=== PATIENT | female | born 1990 | race African-American/Black ===

== ENCOUNTER 2016-08-03 02:42 | Inpatient (IN) ==
[2016-08-03] MEDS ORDERED: BUTORPHANOL 2 MG/ML VIAL IV PRN (02:47)
[2016-08-03] MEDS ORDERED: BUTORPHANOL 1 MG/ML VIAL IV PRN (03:04)
[2016-08-03] MEDS: LACTATED RINGERS 1,000 ML IV SCH ×3 (03:10→20:22)
[2016-08-03] MEDS: AMPICILLIN INJ 2,000 MG in SODIUM CHLORIDE 0.9% 100 ML IV SCH ×3 (03:15→19:10)
[2016-08-03] MEDS: BETAMETH SODIUM PHOS/ACETATE 30 MG/5 ML VIAL IM SCH (03:15)
[2016-08-03] MEDS: ERYTHROMYCIN INJ 500 MG in SODIUM CHLORIDE 0.9% 100 ML IV SCH ×4 (03:37→20:52)
[2016-08-03 03:52] LABS: Basophils % 0.4 % (0.0-0.8); Eosinophils # 0.2 10*3/uL (0.0-0.87); Eosinophils % 2.1 % (0.00-10.9); Hematocrit 34.9 VOL% (35.7-47.0); Hemoglobin 11.2 GM/DL (12.0-16.0); Immature Granulocytes % 0.4 %; Immature Granulocytes Absolute 0.03 #; Lymphocytes # 2.4 10*3/uL (1.4-4.0); Lymphocytes % 30.6 % (21.3-54.2); Mean Corpuscular HGB Conc 32.1 GM/DL (32-36); Mean Corpuscular Hemoglobin 28 PG (27-34); Mean Platelet Volume 10.4 FL (9.6-12.0); Monocytes # 0.9 10*3/uL (0.11-0.8); Monocytes % 11.2 % (1.7-12.7); Neutrophils # 4.4 10*3/uL (1.4-7.4); Neutrophils % 55.3 % (38.7-73.9); Platelet Count 227 T/CUMM (130-400); Red Blood Count 4.01 MC/CUMM (3.8-5.5); Red Cell Distribution Width 13.7 % (9.3-17.3)
[2016-08-03 04:07] LABS: Alanine Aminotransferase 11 U/L (13-56); Albumin 2.7 G/DL (3.4-5.0); Alkaline Phosphatase 86 U/L (45-117); Aspartate Amino Transferase 10 U/L (0-37); Bilirubin,Total < 0.39 MG/DL (0.2-1.0); Blood Urea Nitrogen 7 MG/DL (7-18); Calcium 8.6 MG/DL (8.5-10.1); Glucose 92 MG/DL (74-106); Osmolality,Calculated 285.7 MOS/KG (273-304); Potassium 3.5 MMOL/L (3.5-5.1); Sodium 145 MMOL/L (136-145); Total Protein 5.5 G/DL (6.4-8.3)
[2016-08-03 04:11] LABS: Apearance,Urine CLEAR (Clear); Bilirubin,Urine Negative (Negative); Blood, Urine Negative (Negative); Glucose,Urine (UA) Negative (Negative); Ketones,Urine Negative (Negative); Mucus,Urine Occasional /LPF (Occasional); Nitrite,Urine Negative (Negative); Protein,Urine Negative; RBC,Urine <1 /HPF (0-4); Squamous Epithelial Cell,Urine Occasional /HPF (0-10); Urine Color Straw (Yellow); Urine Specific Gravity 1.012 (1.001-1.035); Urine Urobilinogen < 2.0 EU/DL (0.2-1.0); WBC,Urine 1 /HPF (0-6)
[2016-08-03 08:16] LABS: Hepatitis B Surface Ag Quant < 0.10 Index; Hepatitis B Surface Ag Result Negative (Negative); Rubella Antibody IgG 44.8 IU/ML
[2016-08-03 11:18] LABS: HIV Antigen/Antibody Result Nonreactive (Nonreactive)
--- NOTE | 2016-08-03 11:50 | OB/GYN History & Physical ---
History of Present Illness History of present illness: Ms. De Santiago is a 26 year old female Pt. 26y/o @ 26+1wk presented to labor and delivery from [facility] with leakage of fluid last night. Pt. noted to be grossly ruptured and complaining of abdominal pain. Pt. gave hx of being diagnosed with a urinary tract infection 2 days ago however had not started taking her antibiotics yet. Pt. denied vaginal bleeding. Home Medications Medication Instructions Recorded Confirmed Type Pnv No.122/Iron/Folic Acid 1 tablet PO DAILY 08/03/16 08/03/16 History [ Multi Tablet] Allergies Allergy/AdvReac Type Severity Reaction Status Date / Time No Known Allergies Allergy Verified 08/03/16 02:47 12 point system: reviewed and no additional remarkable complaints except as stated Medical,Surgical,& Family Hx - Medical History Musculoskeletal: No history of: Amputation Reproductive: No history of: Ectopic , Complication - Surgical History Reproductive Surgeries: Patient denies;: Section, Gynecologic Surgery - Family History Family History: Reports;: Family Heart Disease (dad), Family Hematology (pgm clotting problems), Family Hypertension (dad), Family Stroke (uncle) Denies;: Family Anesthesia Reaction, Family Cancer, Family Diabetes, Family Psychiatric Problems, Additional Family History - Social History Smoking Status: Never smoker Frequency of Alcohol Use: None Type of Drug Use: None Exam SENIOR SERVICE AIDE - Constitutional Vitals: Vital Signs Temp Pulse Resp BP Pulse Ox 08/03/16 07:12 98.0 F 83 18 134/75 97 08/03/16 06:08 98.8 F 08/03/16 04:00 98.1 F 71 20 143/76 08/03/16 02:49 98.3 F 73 20 160/87 100 General appearance: no acute distress - Antepartum / Post Antpartum Exam Cervix -Dilatation: sterile speculum exam: 1cm/long/-3 vaginal pooling of clear fluid Heart Rate: category 1 tracing, no contractions - Respiratory Respiratory exam: Present: clear to auscultation bilaterally - Cardiovascular Cardiovascular exam: Present: regular rate and rhythm - GI/Abdominal GI/Abdominal exam: Present: soft - Extremities Exam Extremities exam: Present: normal inspection Assessment and Plan (1) premature rupture of membranes (PPROM) with unknown onset of labor Status: Acute Assessment and plan: 1. admit, urine cx, gc/chlam 2. cont. ampicillen/erythromycin iv 3. cont. betamethasone x 2 doses 4. daily cbcs after completion of steriods 5. ob u/s anisa 2.2, vtx, awaiting official report 6. I counseled the patient regarding the findings on ultrasound and the plan of care. I explained the morbidity associated with premature rupture of membranes and the goal at this time. NICU consult- Dr. Lora has spoken with the patient. Pt. made aware that she will be a candidate for Ronda her next 7. Pt. is not dillan and does not appear to be in imminent delivery therefore will not start magnesium for neuroprotection however if her status changes will start. Current Visit: Yes (2) Urinary tract infection Status: Acute Current Visit: Yes Results - Labs CBC & BMP: 08/03/16 03:37 08/03/16 03:37
--- NOTE | 2016-08-03 11:59 | Ultrasound Report ---
History: Premature rupture of membranes Date: 08/03/2016 Study: Obstetrical ultrasound greater than 14 weeks Comparison exam: First trimester ultrasound April 15, 2016 The study was also reviewed by Bee. Preliminary verbal report was given to Dr. Harris by Bee on 08/03/2016 at 4:05 AM There is a single intrauterine fetus in vertex presentation with a heart rate of 145 bpm. There is oligohydramnios with ARTHUR measuring 2.4 cm. The placenta is posterior without previa. The maternal cervix measures grossly 4.4 cm by transabdominal measurement. The ventricular atrium measures 7 mm transverse. The posterior fossa structures are not well demonstrated. There is a 3 vessel umbilical cord. The spine, stomach bubble, kidneys, bladder, and cord insertion are unremarkable. The four-chamber heart view is not optimally demonstrated. There are no masses of the maternal myometrium. The maternal ovaries are not seen BPD 65 mm or 26 weeks 2 days Head circumference 240 mm or 26 weeks 0 days Abdominal circumference 205 mm or 25 weeks 1 day Femur length 48 mm or 26 weeks 1 days The fetus measures in the 20th percentile based on EFW Impression: Single intrauterine fetus in vertex presentation with a menstrual age of 25 weeks 6 days +/- 13 days, ISABELA October,, and EFW 833 g +/- 124 g. motion and cardiac activity are noted during real-time sonography. Oligohydramnios with ARTHUR of 2.4 cm PROCEDURE INTERPRETED AT [facility] DEPARTMENT OF RADIOLOGY Final Report Signed by: Dr. Merle Aguiar
[2016-08-03] MEDS: DOCUSATE SODIUM 100 MG CAPSULE PO SCH (20:52)
[2016-08-04] MEDS: AMPICILLIN INJ 2,000 MG in SODIUM CHLORIDE 0.9% 100 ML IV SCH ×3 (03:04→19:31)
[2016-08-04] MEDS: BETAMETH SODIUM PHOS/ACETATE 30 MG/5 ML VIAL IM SCH (03:07)
[2016-08-04] MEDS: ERYTHROMYCIN INJ 500 MG in SODIUM CHLORIDE 0.9% 100 ML IV SCH ×4 (04:25→21:13)
[2016-08-04] MEDS: LACTATED RINGERS 1,000 ML IV SCH ×2 (04:26→15:44)
[2016-08-04] MEDS: DOCUSATE SODIUM 100 MG CAPSULE PO SCH ×2 (09:40→21:13)
--- NOTE | 2016-08-04 14:28 | OB/GYN Progress Note ---
Assessment and Plan (1) premature rupture of membranes (PPROM) with unknown onset of labor Status: Acute Assessment and plan: 1. cont. antibiotics 2. cbc in am Current Visit: Yes (2) Urinary tract infection Status: Acute Current Visit: Yes MILK BOTTLER - PN: Subj Interval history: Pt. seen by bedside, denies any complaints. Pt. denies any fever or chills. no vaginal bleeding or abdominal pain. no contractions. + movement. Exam MILK BOTTLER - Constitutional Vitals: Vital Signs Temp Pulse Resp BP Pulse Ox 08/04/16 07:39 97.4 F L 85 18 128/76 97 08/04/16 06:05 97.7 F 08/04/16 04:00 99.2 F 08/04/16 01:59 97.3 F L 08/04/16 01:00 99.4 F 08/03/16 23:00 98.4 F 97 H 18 114/62 08/03/16 21:02 98.8 F 08/03/16 19:00 99.3 F 85 20 136/72 98 08/03/16 16:00 98.1 F 95 H 18 138/77 General appearance: no acute distress - Antepartum / Post Antpartum Exam Heart Rate: category 1 tracing, moderate variability, no contractions. - Respiratory Respiratory exam: Present: clear to auscultation bilaterally - Cardiovascular Cardiovascular exam: Present: regular rate and rhythm - GI/Abdominal GI/Abdominal exam: Present: soft (soft, nontender) - Extremities Exam Extremities exam: Present: normal inspection Results - Labs CBC & BMP: 08/03/16 03:37 08/03/16 03:37
[2016-08-04] MEDS: MAGNESIUM SULF DRIP 40 GM/1,000 ML ML IV SCH (15:18)
[2016-08-04] MEDS: ACETAMINOPHEN 325 MG TABLET PO PRN (22:25)
[2016-08-05] MEDS: AMPICILLIN INJ 2,000 MG in SODIUM CHLORIDE 0.9% 100 ML IV SCH ×3 (03:25→19:15)
[2016-08-05 04:05] LABS: Basophils % 0.1 % (0.0-0.8); Hematocrit 33.3 VOL% (35.7-47.0); Immature Granulocytes % 2.1 %; Immature Granulocytes Absolute 0.47 #; Lymphocytes # 2.1 10*3/uL (1.4-4.0); Lymphocytes % 9.3 % (21.3-54.2); Mean Corpuscular Hemoglobin 28 PG (27-34); Mean Corpuscular Volume 84.7 FL (87-102); Mean Platelet Volume 10.5 FL (9.6-12.0); Monocytes # 0.9 10*3/uL (0.11-0.8); Monocytes % 4.1 % (1.7-12.7); Neutrophils # 18.8 10*3/uL (1.4-7.4); Neutrophils % 84.4 % (38.7-73.9); Platelet Count 270 T/CUMM (130-400); Red Blood Count 3.93 MC/CUMM (3.8-5.5); White Blood Count 22.2 T/CUMM (4-12)
[2016-08-05] MEDS: ERYTHROMYCIN INJ 500 MG in SODIUM CHLORIDE 0.9% 100 ML IV SCH ×4 (04:10→21:25)
[2016-08-05 04:58] LABS: Anisocytosis Slight; Band Neutrophils 2 % (0-10); Lymphocytes 8 % (20-55); Microcytosis Slight; Platelet Estimate Normal; Segmented Neutrophils 85 % (50-85); Total Cells Counted 100
[2016-08-05] MEDS: LACTATED RINGERS 1,000 ML IV SCH ×2 (05:10→21:25)
[2016-08-05] MEDS: DOCUSATE SODIUM 100 MG CAPSULE PO SCH ×2 (08:53→21:05)
--- NOTE | 2016-08-05 09:20 | OB/GYN Progress Note ---
Assessment and Plan (1) premature rupture of membranes (PPROM) with unknown onset of labor Status: Acute Assessment and plan: Continue current management. Patient neonatology consultation. Current Visit: Yes VISCOSITY INSPECTOR - PN: Subj Interval history: Patient denies uterine contractions or vaginal bleeding. She still has some leaking of fluid and reports good movement. Exam VISCOSITY INSPECTOR - Constitutional Vitals: Vital Signs Temp Pulse Resp BP Pulse Ox 08/05/16 08:00 99.8 F H 85 18 127/71 08/05/16 06:00 99.2 F 08/05/16 04:00 97.6 F 81 18 131/79 08/05/16 02:00 98.1 F 08/05/16 00:00 98.3 F 88 18 129/73 08/04/16 22:26 98.1 F 08/04/16 22:25 98.1 F 08/04/16 21:15 98.8 F 08/04/16 19:52 96 H 20 103/62 08/04/16 19:00 98.8 F 08/04/16 16:00 97.4 F L 92 H 18 134/75 96 08/04/16 12:00 99.1 F General appearance: no acute distress - Antepartum / Post Antpartum Exam Cervix -Dilatation: Closed Effacement: long Station: -4 Rupture: PPROM Presentation: vertex Heart Rate: 140s/150s [place]: no contractions Results - Labs CBC & BMP: 08/05/16 03:55 08/03/16 03:37
[2016-08-05] MEDS: MAGNESIUM SULF DRIP 40 GM/1,000 ML ML IV SCH (11:19)
[2016-08-05] MEDS: ACETAMINOPHEN 325 MG TABLET PO PRN (12:33)
[2016-08-06] MEDS: AMPICILLIN INJ 2,000 MG in SODIUM CHLORIDE 0.9% 100 ML IV SCH ×3 (03:05→19:35)
[2016-08-06] MEDS: ERYTHROMYCIN INJ 500 MG in SODIUM CHLORIDE 0.9% 100 ML IV SCH ×4 (03:30→21:15)
[2016-08-06] MEDS: DOCUSATE SODIUM 100 MG CAPSULE PO SCH ×2 (08:54→21:15)
[2016-08-06] MEDS: LACTATED RINGERS 1,000 ML IV SCH (10:42)
[2016-08-06 16:45] LABS: Basophils % 0.1 % (0.0-0.8); Hemoglobin 11.1 GM/DL (12.0-16.0); Immature Granulocytes % 2.5 %; Lymphocytes # 2.6 10*3/uL (1.4-4.0); Lymphocytes % 16.4 % (21.3-54.2); Mean Corpuscular HGB Conc 32.6 GM/DL (32-36); Mean Corpuscular Hemoglobin 28 PG (27-34); Mean Corpuscular Volume 86.5 FL (87-102); Mean Platelet Volume 10.4 FL (9.6-12.0); Monocytes # 1.6 10*3/uL (0.11-0.8); NRBC # 0.03 10*3/uL; Neutrophils # 11.2 10*3/uL (1.4-7.4); Platelet Count 255 T/CUMM (130-400); Red Blood Count 3.93 MC/CUMM (3.8-5.5); Red Cell Distribution Width 14.3 % (9.3-17.3); White Blood Count 15.8 T/CUMM (4-12)
--- NOTE | 2016-08-06 17:19 | OB/GYN Progress Note ---
Assessment and Plan (1) premature rupture of membranes (PPROM) with unknown onset of labor Status: Acute Assessment and plan: Continue current management. Patient neonatology consultation. Repeat ultrasound for ARTHUR. Will consider discharge to home pending labs and ultrasound. Current Visit: Yes ARCHITECTURAL MANAGER - PN: Subj Interval history: pt without complaint. Reports good movement. Still leaking fluid. No contractions, no bleeding Exam ARCHITECTURAL MANAGER - Constitutional Vitals: Vital Signs Temp Pulse Resp BP Pulse Ox 08/06/16 08:00 98.9 F 55 L 18 129/72 99 08/06/16 04:00 98.9 F 71 18 127/68 08/06/16 03:00 98.8 F 08/06/16 01:00 98.1 F 08/06/16 00:00 97.6 F 73 18 121/69 08/05/16 23:00 97.6 F 08/05/16 21:00 97.7 F 08/05/16 20:00 98.8 F 94 H 20 118/68 General appearance: no acute distress - Head Head exam: Present: normocephalic - Respiratory Respiratory exam: Present: clear to auscultation bilaterally - Cardiovascular Cardiovascular exam: Present: regular rate and rhythm - GI/Abdominal GI/Abdominal exam: Present: normal bowel sounds, soft (non-tender) - Extremities Exam Extremities exam: Present: normal inspection Results - Labs CBC & BMP: 08/06/16 16:39 08/03/16 03:37
--- NOTE | 2016-08-06 17:46 | Ultrasound Report ---
History: Spontaneous rupture of membranes Date: 08/06/2016 Study: Obstetric ultrasound greater than 14 weeks follow-up Comparison exam: August 03, 2016 ultrasound is available Real-time ultrasound images are captured and archived. There is a single intrauterine fetus in vertex presentation with a heart rate of 157 bpm. The maternal cervix measures 3.1 cm in length and is closed. The ARTHUR is decreased at 2.9 cm; previously at 2.4 cm on the prior exam. The placenta is right lateralized without previa. There is a three-vessel umbilical cord. Four-chamber heart view, stomach bubble, kidneys, bladder, and cord insertion were identified and appeared normal. The spine was not optimally seen because of positioning, though no gross abnormality is identified. No masses of the maternal myometrial are identified. The maternal ovaries are not demonstrated. BPD 67 mm or 27 weeks 0 days Head circumference 237 mm or 25 weeks 5 days Abdominal circumference 204 mm or 25 weeks 0 days Femur length 47 mm or 25 weeks 4 days The fetus measures in the 6.8 percentile based on EFW. The femur length to BPD ratio is mildly decreased at 69.9 Impression: Single intrauterine fetus in vertex presentation with an ultrasound gestational age of 25 weeks 6 days days +/- 10 days, ISABELA November 13, 2016, and EFW 804 g +/- 121 g. motion and cardiac activity are noted during real-time sonography There is oligohydramnios at 2.9 cm, though this previously measured 2.4 cm on August 03, 2016 PROCEDURE INTERPRETED AT [facility] DEPARTMENT OF RADIOLOGY Final Report Signed by: Dr. Merle Aguiar
[2016-08-07] MEDS: LACTATED RINGERS 1,000 ML IV SCH (00:45)
[2016-08-07] MEDS: AMPICILLIN INJ 2,000 MG in SODIUM CHLORIDE 0.9% 100 ML IV SCH ×3 (02:54→19:34)
[2016-08-07] MEDS: ERYTHROMYCIN INJ 500 MG in SODIUM CHLORIDE 0.9% 100 ML IV SCH ×4 (03:20→21:29)
[2016-08-07] MEDS: ONDANSETRON 4 MG/2 ML VIAL IV PRN (08:04)
[2016-08-07] MEDS: DOCUSATE SODIUM 100 MG CAPSULE PO SCH ×2 (09:25→21:29)
--- NOTE | 2016-08-07 10:23 | OB/GYN Progress Note ---
Assessment and Plan (1) premature rupture of membranes (PPROM) with unknown onset of labor Status: Acute Assessment and plan: Continue current management. Patient neonatology consultation. Repeat ARTHUR was found be 2.9 which was increased from couple days prior. Her white count was found to be decreasing and 15 down from 22. However because the patient is at viable gestational age(and due to the risk of umbilical cord prolapse and chorioamnionitis she will remain in-house until time for delivery. Will transfer from labor and delivery to the OB floor. Current Visit: Yes POLITICAL CONSULTANT - PN: Subj Interval history: Patient without complaints this morning. Exam POLITICAL CONSULTANT - Constitutional Vitals: Vital Signs Temp Pulse Resp BP Pulse Ox 08/07/16 08:00 97.9 F 60 18 147/87 97 08/07/16 06:00 98.5 F 08/07/16 04:00 98.7 F 53 L 18 125/71 08/07/16 02:30 97.8 F 08/07/16 00:00 97.8 F 53 L 18 143/81 08/06/16 20:00 98.7 F 81 18 123/69 08/06/16 16:00 99.6 F 64 18 114/61 100 08/06/16 12:00 98.0 F 54 L 18 163/85 98 General appearance: no acute distress - Head Head exam: Present: normocephalic - Respiratory Respiratory exam: Present: clear to auscultation bilaterally - Cardiovascular Cardiovascular exam: Present: regular rate and rhythm - GI/Abdominal GI/Abdominal exam: Present: normal bowel sounds, soft (abdomen soft and nontender) - Extremities Exam Extremities exam: Present: normal inspection Results - Labs CBC & BMP: 08/06/16 16:39 08/03/16 03:37
[2016-08-08] MEDS: AMPICILLIN INJ 2,000 MG in SODIUM CHLORIDE 0.9% 100 ML IV SCH ×3 (02:36→20:00)
[2016-08-08] MEDS: ERYTHROMYCIN INJ 500 MG in SODIUM CHLORIDE 0.9% 100 ML IV SCH ×4 (03:17→21:17)
[2016-08-08] MEDS: DOCUSATE SODIUM 100 MG CAPSULE PO SCH ×2 (12:03→20:33)
--- NOTE | 2016-08-08 16:37 | OB/GYN Progress Note ---
Assessment and Plan (1) premature rupture of membranes (PPROM) with unknown onset of labor Status: Acute Assessment and plan: Continue current management. Patient neonatology consultation. Repeat ARTHUR was found be 2.9 which was increased from couple days prior. Her white count was found to be decreasing and 15 down from 22. However because the patient is at viable gestational age(and due to the risk of umbilical cord prolapse and chorioamnionitis she will remain in-house until time for delivery. Will transfer from labor and delivery to the OB floor. Current Visit: Yes FARM ADVISER - PN: Subj Interval history: No complaints. Good movement. No contractions or bleeding Exam FARM ADVISER - Constitutional Vitals: Vital Signs Temp Pulse Resp BP Pulse Ox 08/08/16 04:00 99.9 F H 54 L 16 144/72 95 08/08/16 02:36 97.7 F 08/08/16 00:30 97.7 F 52 L 16 130/62 95 08/07/16 22:30 99.8 F H 08/07/16 20:00 99.9 F H 88 16 128/67 97 General appearance: no acute distress - Head Head exam: Present: normocephalic - Respiratory Respiratory exam: Present: clear to auscultation bilaterally - Cardiovascular Cardiovascular exam: Present: regular rate and rhythm - GI/Abdominal GI/Abdominal exam: Present: normal bowel sounds, soft (nontender) - Extremities Exam Extremities exam: Present: normal inspection Results - Labs CBC & BMP: 08/06/16 16:39 08/03/16 03:37
[2016-08-09] MEDS: AMPICILLIN INJ 2,000 MG in SODIUM CHLORIDE 0.9% 100 ML IV SCH ×3 (03:26→23:00)
[2016-08-09] MEDS: ERYTHROMYCIN INJ 500 MG in SODIUM CHLORIDE 0.9% 100 ML IV SCH (04:20)
--- NOTE | 2016-08-09 07:34 | OB/GYN Progress Note ---
SPARMAKER - PN: Subj Interval history: OB on-call note This is a 26-year-old female patient of Dr. Taylor who is now at 27+1 weeks estimated gestational age who is admitted a week ago with P PROM and elevated white blood cell count. On review of her chart patient was placed on IV ampicillin and IV erythromycin and given steroids 24 hours apart and had follow- up ultrasound which showed increasing ARTHUR of 2.9 and diminishing white blood cell count down to 15,000. Patient did receive IV magnesium sulfate for neuro prophylaxis for 24 hours. EFW on u/s done 08/06 was 804 grams (6.8%). The patient has been running low-grade fevers of 99+ but has no documented fundal tenderness. Plan per Dr. Valerio is to continue to watch in house until labor ensues or patient develops dolores chorioamnionitis Patient today's doing well she denies any tenderness and is currently afebrile. We will repeat a white blood cell count on her today and continuing her IV ampicillin but her change her IV erythromycin to by mouth. We will discuss this patient with Dr. Cárdenas of perinatology to get further recommendations regarding this patient's care. Exam SPARMAKER - Constitutional Vitals: Vital Signs Temp Pulse Resp BP 08/09/16 04:00 99.1 F 53 L 18 132/60 08/09/16 00:00 97.5 F L 71 18 124/66 08/08/16 22:42 97.4 F L 08/08/16 20:00 99 F 93 H 18 116/77 Results - Labs CBC & BMP: 08/06/16 16:39 08/03/16 03:37
[2016-08-09] MEDS: DOCUSATE SODIUM 100 MG CAPSULE PO SCH ×2 (09:44→21:10)
[2016-08-09] MEDS: ERYTHROMYCIN BASE 250 MG TABLET PO SCH ×2 (09:44→21:25)
[2016-08-09] MEDS ORDERED: ERYTHROMYCIN BASE 250 MG TABLET PO ONE (21:20)
[2016-08-10] MEDS: AMPICILLIN INJ 2,000 MG in SODIUM CHLORIDE 0.9% 100 ML IV SCH ×3 (07:04→23:15)
--- NOTE | 2016-08-10 09:43 | OB/GYN Progress Note ---
FLEXIBLE BABYSITTER - PN: Subj Interval history: Patient is status quo with no clinical evidence of chorioamnionitis. She is afebrile and her vital signs are stable Her abdomen is soft and nontender CBC results are pending Assessment P PROM with no clinical evidence of chorioamnionitis this point Plan continue present management Exam FLEXIBLE BABYSITTER - Constitutional Vitals: Vital Signs Temp Pulse Resp BP 08/10/16 06:00 97.9 F 08/10/16 04:00 97.1 F L 65 18 129/82 08/10/16 02:00 98.4 F 08/10/16 00:00 70 18 116/58 08/09/16 23:02 98.1 F 08/09/16 21:25 97.7 F 08/09/16 20:00 98.8 F 70 18 120/55 08/09/16 16:00 98.1 F 63 20 130/71 08/09/16 14:00 98.6 F 08/09/16 12:00 98.0 F 08/09/16 10:10 97.8 F Results - Labs CBC & BMP: 08/06/16 16:39 08/03/16 03:37
[2016-08-10 10:04] LABS: Basophils % 0.2 % (0.0-0.8); Eosinophils # 0.2 10*3/uL (0.0-0.87); Eosinophils % 1.3 % (0.00-10.9); Hematocrit 36.5 VOL% (35.7-47.0); Hemoglobin 12.1 GM/DL (12.0-16.0); Immature Granulocytes Absolute 0.12 #; Lymphocytes # 2.8 10*3/uL (1.4-4.0); Lymphocytes % 23.8 % (21.3-54.2); Mean Corpuscular HGB Conc 33.2 GM/DL (32-36); Mean Corpuscular Hemoglobin 29 PG (27-34); Mean Corpuscular Volume 86.5 FL (87-102); Mean Platelet Volume 10.4 FL (9.6-12.0); Monocytes # 1.1 10*3/uL (0.11-0.8); Monocytes % 8.8 % (1.7-12.7); Neutrophils # 7.8 10*3/uL (1.4-7.4); Neutrophils % 64.9 % (38.7-73.9); Platelet Count 250 T/CUMM (130-400); Red Blood Count 4.22 MC/CUMM (3.8-5.5); White Blood Count 11.9 T/CUMM (4-12)
[2016-08-10] MEDS: ERYTHROMYCIN BASE 250 MG TABLET PO SCH ×2 (10:21→21:05)
[2016-08-10] MEDS: DOCUSATE SODIUM 100 MG CAPSULE PO SCH ×2 (10:22→21:04)
[2016-08-11] MEDS: AMPICILLIN INJ 2,000 MG in SODIUM CHLORIDE 0.9% 100 ML IV SCH ×3 (06:40→23:03)
[2016-08-11 08:13] LABS: Basophils % 0.2 % (0.0-0.8); Eosinophils # 0.3 10*3/uL (0.0-0.87); Eosinophils % 2.6 % (0.00-10.9); Hematocrit 37.4 VOL% (35.7-47.0); Hemoglobin 12.2 GM/DL (12.0-16.0); Immature Granulocytes Absolute 0.13 #; Lymphocytes # 3.1 10*3/uL (1.4-4.0); Lymphocytes % 24.8 % (21.3-54.2); Mean Corpuscular HGB Conc 32.6 GM/DL (32-36); Mean Corpuscular Hemoglobin 29 PG (27-34); Mean Corpuscular Volume 87.4 FL (87-102); Mean Platelet Volume 10.2 FL (9.6-12.0); Monocytes # 1.2 10*3/uL (0.11-0.8); Neutrophils # 7.6 10*3/uL (1.4-7.4); Neutrophils % 61.4 % (38.7-73.9); Platelet Count 243 T/CUMM (130-400); Red Blood Count 4.28 MC/CUMM (3.8-5.5); White Blood Count 12.4 T/CUMM (4-12)
[2016-08-11] MEDS: DOCUSATE SODIUM 100 MG CAPSULE PO SCH ×2 (09:34→21:04)
[2016-08-11] MEDS: ERYTHROMYCIN BASE 250 MG TABLET PO SCH ×2 (09:34→21:04)
--- NOTE | 2016-08-11 11:17 | OB/GYN Progress Note ---
WASH TANK TENDER - PN: Subj Interval history: Patient has no change clinically and has no complaints. Her MAXIMUM TEMPERATURE is 99 which she has had these mild temperature elevations throughout her hospitalization. She is currently afebrile and her vital signs are stable. Her abdomen is nontender. She is not tachycardic. Her white blood cell count has diminished 12,000 Assessment #1 premature prolonged rupture membranes Plan continue present management. Dr. Valerio is out of town next week in the on- call personnel will follow during the week for continued management Exam WASH TANK TENDER - Constitutional Vitals: Vital Signs Temp Pulse Resp BP Pulse Ox 08/11/16 09:38 99.1 F 08/11/16 07:47 99.1 F 67 20 125/65 96 08/11/16 06:40 97.4 F L 18 08/11/16 04:00 97.9 F 79 18 120/78 08/11/16 02:03 97.8 F 08/11/16 00:00 98.7 F 72 18 120/57 08/10/16 22:02 99.1 F 20 08/10/16 20:00 97.8 F 92 H 20 139/79 08/10/16 18:00 97.5 F L 08/10/16 16:05 98.7 F 96 H 20 123/59 08/10/16 14:00 97.3 F L 08/10/16 11:54 97.7 F 18 120/78 Results - Labs CBC & BMP: 08/11/16 08:01 08/03/16 03:37
[2016-08-12] MEDS: AMPICILLIN INJ 2,000 MG in SODIUM CHLORIDE 0.9% 100 ML IV SCH (07:34)
[2016-08-12] MEDS: DOCUSATE SODIUM 100 MG CAPSULE PO SCH ×2 (10:06→20:41)
[2016-08-12] MEDS: ERYTHROMYCIN BASE 250 MG TABLET PO SCH ×2 (10:06→20:41)
--- NOTE | 2016-08-12 10:15 | OB/GYN Progress Note ---
Assessment and Plan (1) premature rupture of membranes (PPROM) with unknown onset of labor Status: Acute Assessment and plan: This is a26 y/o at 27 weeks 3 days, PPROM since 08/03/16. Switched to PO antibiotics today. No s/s chorioamnionitis at this time. The pt is s/p FLM and Magnesium sulfate. She will get another u/s today to make sure that baby is still vertex. The pt has had 2 prior SAVDs. Over the weekend the doctor wind operations supervisor spoke to JEAN-CLAUDE, Dr. Carranza in [place] and per [facility] . Proceed with changing to PO antibiotics and watching for s/s of chorioamnionitis of distress. At this time the pt is stable and is the baby. Current Visit: Yes BENDING ROLL HAND - PN: Subj Interval history: The pt is still leaking clear odorless fluid. She denies contractions. The pt says she feels 'good" this morning. Exam BENDING ROLL HAND - Constitutional Vitals: Vital Signs Temp Pulse Resp BP Pulse Ox 08/12/16 07:44 98.9 F 66 18 116/66 08/12/16 04:00 98.6 F 70 18 122/70 08/12/16 02:00 97.8 F 08/12/16 00:01 98.5 F 75 20 122/62 08/11/16 22:00 97.8 F 08/11/16 20:00 97.7 F 78 20 117/68 08/11/16 18:10 97.7 F 08/11/16 15:46 97.1 F L 70 20 125/83 97 08/11/16 14:00 98.1 F 08/11/16 11:48 98.1 F 76 20 131/76 96 General appearance: normal weight, no acute distress - Respiratory Respiratory exam: Absent: accessory muscle use - Cardiovascular Cardiovascular exam: Present: regular rate and rhythm - GI/Abdominal GI/Abdominal exam: Present: soft (except for fundus ). Absent: guarding, tenderness, rebound - Extremities Exam Extremities exam: Absent: calf tenderness - Neurological Exam Neurological exam: Present: alert, oriented X3 - Psychiatric Psychiatric exam: Present: normal affect Results - Labs CBC & BMP: 08/11/16 08:01 08/03/16 03:37 - Diagnostic Findings Procedure: Uterus-Nonstress Test: other (reassuring for 27 weeks. no contractions)
--- NOTE | 2016-08-12 16:51 | Ultrasound Report ---
Exam: US OB limited Date: 08/12/2016 11:02 AM Indication: Assess presentation and amniotic fluid volume. Reported gestational age 27 weeks 3 days with premature rupture of membranes. Comparison: 08/06/2016. Findings: There is a single fetus in cephalic presentation with cardiac activity. Heart rate is regular at 147 bpm. The placenta is right lateral/fundal with no previa. biometry was not performed. Cervix measures 2.46 cm Amniotic fluid index: 4 quadrant amniotic fluid index of 2.46 cm, consistent with oligohydramnios. structures: anatomic survey was not performed Maternal ovaries not visualized. Ultrasound images were captured and stored. Impression: 1. Limited the ultrasound demonstrates a single intrauterine fetus in cephalic presentation with cardiac activity. 2. Slight interval worsening of known oligohydramnios with current amniotic fluid index of 1.5 cm (previously 2.9 cm). 3. Cervical foreshortening measuring 2.46 cm. PROCEDURE INTERPRETED AT [facility] DEPARTMENT OF RADIOLOGY Final Report Signed by: Jens Jeter
[2016-08-12] MEDS: AMOXICILLIN 875 MG TABLET PO SCH (20:41)
--- NOTE | 2016-08-13 08:13 | OB/GYN Progress Note ---
Assessment and Plan (1) premature rupture of membranes (PPROM) with unknown onset of labor Status: Acute Assessment and plan: This is a26 y/o at 27 weeks 4 days, PPROM since 08/03/16. Switched to PO antibiotics on 08/12/16 No s/s chorioamnionitis at this time. The pt is s /p FLM and Magnesium sulfate. She had another u/s on 08/12/16 and the baby is still vertex. The pt has had 2 prior SAVDs. Over the weekend the doctor compressor stations superintendent spoke to JEAN-CLAUDE, Dr. Carranza in [place] and per [facility] . Proceed with changing to PO antibiotics and watching for s/s of chorioamnionitis of distress. At this time the pt is stable and is the baby. Current Visit: Yes DIRECTOR GOVERNMENT - PN: Subj Interval history: The pt is doing well. The pt denies in fundal tenderness. She says the baby is moving well and she denies contractions. Exam DIRECTOR GOVERNMENT - Constitutional Vitals: Vital Signs Temp Pulse Resp BP Pulse Ox 08/13/16 07:23 98.9 F 88 18 121/78 96 08/13/16 04:00 98.7 F 66 18 120/76 95 08/13/16 02:00 96.8 F L 18 08/13/16 00:00 98.4 F 85 18 135/78 96 08/12/16 22:00 98.6 F 08/12/16 20:00 98.5 F 77 18 135/81 96 08/12/16 18:00 98.9 F 08/12/16 16:35 98.2 F 99 H 18 132/77 99 08/12/16 12:00 98.4 F 86 18 125/69 General appearance: normal weight, no acute distress - Respiratory Respiratory exam: Absent: accessory muscle use - Cardiovascular Cardiovascular exam: Present: regular rate and rhythm - GI/Abdominal GI/Abdominal exam: Absent: guarding, tenderness, rebound - Extremities Exam Extremities exam: Absent: calf tenderness - Neurological Exam Neurological exam: Present: alert, oriented X3 - Psychiatric Psychiatric exam: Present: normal affect Results - Labs CBC & BMP: 08/11/16 08:01 08/03/16 03:37 - Diagnostic Findings Procedure: Uterus-Nonstress Test: other (NST reassuring , no contractions)
[2016-08-13] MEDS: MULTIVITAMIN (PRENATAL) TABLET PO SCH (09:24)
[2016-08-13] MEDS: AMOXICILLIN 875 MG TABLET PO SCH ×2 (09:24→22:17)
[2016-08-13] MEDS: DOCUSATE SODIUM 100 MG CAPSULE PO SCH ×2 (09:24→22:17)
[2016-08-13] MEDS: ERYTHROMYCIN BASE 250 MG TABLET PO SCH ×2 (09:24→22:17)
--- NOTE | 2016-08-14 07:27 | OB/GYN Progress Note ---
Assessment and Plan (1) premature rupture of membranes (PPROM) with unknown onset of labor Status: Acute Assessment and plan: This is a 26 y/o at 27 weeks 5 days, PPROM since 08/03/16. Switched to PO antibiotics on 08/12/16 and is is scheduled to stop on 08/17/16. No s/s chorioamnionitis at this time. The pt is s/p FLM on 08/03-08/04/16 and Magnesium sulfate x 24 hours. She had another u/s on 08/12/16 and the baby is still vertex. The pt has had 2 prior SAVDs. Over the weekend the doctor manager animation spoke to [facility], Dr. Carranza in [place] and per [facility] . Proceed with changing to PO antibiotics x a total of 5 days and watching for s/s of chorioamnionitis of distress. At this time the pt is stable and is the baby. Current Visit: Yes DOCUMENTATION LIAISON - PN: Subj Interval history: The pt has no new complaints. She still leaks fluid periodically and it does not have an odor. She denies contractions. The baby is moving well. Exam DOCUMENTATION LIAISON - Constitutional Vitals: Vital Signs Temp Pulse Resp BP Pulse Ox 08/14/16 06:00 96.7 F L 08/14/16 04:00 97.8 F 78 18 121/77 96 08/14/16 02:00 97.8 F 08/14/16 00:00 98.3 F 78 18 119/72 95 08/13/16 22:00 98.3 F 08/13/16 20:00 98.6 F 92 H 18 123/70 96 08/13/16 18:06 98.5 F 08/13/16 16:00 99.4 F 88 18 121/72 97 08/13/16 14:30 98.6 F 08/13/16 11:41 98.8 F 69 18 114/77 97 General appearance: normal weight, no acute distress - Respiratory Respiratory exam: Absent: accessory muscle use - Cardiovascular Cardiovascular exam: Present: regular rate and rhythm - GI/Abdominal GI/Abdominal exam: Present: other (no fundal tenderness. pt has mild suprapubic tenderness which is unchanged ). Absent: guarding, tenderness, rebound - Extremities Exam Extremities exam: Absent: calf tenderness - Neurological Exam Neurological exam: Present: alert, oriented X3 - Psychiatric Psychiatric exam: Present: normal affect, normal mood - Skin Skin exam: Present: normal color Results - Labs CBC & BMP: 08/11/16 08:01 08/03/16 03:37 - Diagnostic Findings Procedure: Uterus-Nonstress Test: other (reassuring)
[2016-08-14] MEDS: AMOXICILLIN 875 MG TABLET PO SCH ×2 (09:09→21:35)
[2016-08-14] MEDS: ERYTHROMYCIN BASE 250 MG TABLET PO SCH ×2 (09:10→21:35)
[2016-08-14] MEDS: MULTIVITAMIN (PRENATAL) TABLET PO SCH (09:10)
[2016-08-14] MEDS: DOCUSATE SODIUM 100 MG CAPSULE PO SCH ×2 (09:10→21:35)
[2016-08-15] MEDS: ERYTHROMYCIN BASE 250 MG TABLET PO SCH ×2 (09:30→21:04)
[2016-08-15] MEDS: AMOXICILLIN 875 MG TABLET PO SCH ×2 (09:30→21:04)
[2016-08-15] MEDS: DOCUSATE SODIUM 100 MG CAPSULE PO SCH ×2 (09:30→21:04)
[2016-08-15] MEDS: MULTIVITAMIN (PRENATAL) TABLET PO SCH (09:31)
--- NOTE | 2016-08-15 12:23 | OB/GYN Progress Note ---
Assessment and Plan (1) premature rupture of membranes (PPROM) with unknown onset of labor Status: Acute Assessment and plan: This is a 26 y/o at 27 weeks 6 days, PPROM since 08/03/16. Switched to PO antibiotics on 08/12/16 and is is scheduled to stop on 08/17/16. No s/s chorioamnionitis at this time. The pt is s/p FLM on 08/03-08/04/16 and Magnesium sulfate x 24 hours. She had another u/s on 08/12/16 and the baby is still vertex. The pt has had 2 prior SAVDs. Over the weekend the doctor alterations manager spoke to [facility], Dr. Carranza in [place] and per [facility] . Proceed with changing to PO antibiotics x a total of 5 days and watching for s/s of chorioamnionitis of distress. At this time the pt is stable and is the baby. 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 The baby is moving well. She has no foul smelling drainage. She denies contractions. Exam KITCHEN DESIGNER - Constitutional Vitals: Vital Signs Temp Pulse Resp BP Pulse Ox 08/15/16 11:13 98.3 F 87 18 119/62 97 08/15/16 07:39 18 08/15/16 07:16 97.1 F L 84 16 110/76 97 08/15/16 06:00 97.8 F 18 08/15/16 04:00 97.1 F L 84 18 124/70 95 08/15/16 02:00 99.0 F 08/15/16 00:00 98.8 F 84 18 123/79 95 08/14/16 22:00 98.9 F 08/14/16 20:00 98 F 85 18 132/75 96 08/14/16 17:59 98.6 F 08/14/16 15:23 98.8 F 90 18 119/74 97 General appearance: normal weight, no acute distress - Respiratory Respiratory exam: Absent: accessory muscle use - Cardiovascular Cardiovascular exam: Present: regular rate and rhythm - GI/Abdominal GI/Abdominal exam: Present: other (gravid. no fundal tenderness). Absent: guarding, tenderness, rebound - Extremities Exam Extremities exam: Absent: calf tenderness - Neurological Exam Neurological exam: Present: alert, oriented X3 - Psychiatric Psychiatric exam: Present: normal affect, normal mood - Skin Skin exam: Present: normal color Results - Labs CBC & BMP: 08/11/16 08:01 08/03/16 03:37 - Diagnostic Findings Procedure: Uterus-Nonstress Test: other (NST reassuring)
[2016-08-15] MEDS: ACETAMINOPHEN 325 MG TABLET PO PRN (23:54)
[2016-08-16] MEDS: AMOXICILLIN 875 MG TABLET PO SCH ×2 (09:42→21:09)
[2016-08-16] MEDS: MULTIVITAMIN (PRENATAL) TABLET PO SCH (09:42)
[2016-08-16] MEDS: DOCUSATE SODIUM 100 MG CAPSULE PO SCH ×2 (09:42→21:10)
[2016-08-16] MEDS: ERYTHROMYCIN BASE 250 MG TABLET PO SCH ×2 (09:42→21:09)
--- NOTE | 2016-08-16 19:47 | OB/GYN Progress Note ---
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 Still leaking a small amount of nonodorous fluid. Exam LEARNING AND DEVELOPMENT ASSOCIATE - Constitutional Vitals: Vital Signs Temp Pulse Resp BP Pulse Ox 08/16/16 18:02 97.2 F L 08/16/16 15:51 99.0 F 94 H 18 122/67 96 08/16/16 15:33 99 F 94 H 18 122/67 96 08/16/16 14:10 99.1 F 08/16/16 11:32 97.8 F 84 16 110/68 96 08/16/16 07:21 97.4 F L 77 16 109/66 95 08/16/16 06:16 97.6 F 08/16/16 06:00 20 08/16/16 04:00 97.5 F L 80 20 110/64 95 08/16/16 02:00 97.3 F L 20 08/16/16 00:15 98.3 F 76 22 139/87 95 08/15/16 22:17 98.9 F - Head Head exam: Present: normal inspection - ENT ENT exam: Present: normal exam - Neck Neck exam: Present: normal inspection - Respiratory Respiratory exam: Present: clear to auscultation bilaterally - Cardiovascular Cardiovascular exam: Present: regular rate and rhythm. Absent: bradycardia, tachycardia - GI/Abdominal GI/Abdominal exam: Present: normal bowel sounds, tenderness (mild suprapubic tenderness) - Extremities Exam Extremities exam: Present: normal inspection - Neurological Exam Neurological exam: Present: alert, oriented X3 - Psychiatric Psychiatric exam: Present: normal affect, normal mood - Skin Skin exam: Present: normal color, warm, dry Results - Labs CBC & BMP: 08/11/16 08:01 08/03/16 03:37
[2016-08-17] MEDS: MULTIVITAMIN (PRENATAL) TABLET PO SCH (10:10)
[2016-08-17] MEDS: DOCUSATE SODIUM 100 MG CAPSULE PO SCH ×2 (10:10→21:22)
[2016-08-17] MEDS: AMOXICILLIN 875 MG TABLET PO SCH ×2 (11:01→21:22)
[2016-08-17] MEDS: ERYTHROMYCIN BASE 250 MG TABLET PO SCH ×2 (11:01→21:22)
--- NOTE | 2016-08-17 12:22 | Progress Note ---
Assessment and Plan (1) premature rupture of membranes (PPROM) with unknown onset of labor Status: Acute Current Visit: Yes Family Medicine PN Sub Interval history: No change, patient remains without any signs of infection. She does have some mild nausea but that is her only complaint. Exam (Progress Note) - Constitutional Vitals: Period Temp Pulse Resp BP Sys/Berumen Pulse Ox Last 24 Hr 97.2 F-99.2 F 18-94 18-24 111-123/67-86 95-96 General appearance: no acute distress - Neck Neck exam: Present: normal inspection - Respiratory Respiratory exam: Present: clear to auscultation bilaterally. Absent: accessory muscle use - Cardiovascular Cardiovascular exam: Present: regular rate and rhythm - GI/Abdominal GI/Abdominal exam: Present: soft. Absent: tenderness - Extremities Exam Extremities exam: Present: normal inspection Results - Labs CBC & BMP: 08/11/16 08:01 08/03/16 03:37
[2016-08-18] MEDS: AMOXICILLIN 875 MG TABLET PO SCH ×2 (09:20→21:20)
[2016-08-18] MEDS: DOCUSATE SODIUM 100 MG CAPSULE PO SCH ×2 (09:21→21:20)
[2016-08-18] MEDS: MULTIVITAMIN (PRENATAL) TABLET PO SCH (09:21)
[2016-08-18] MEDS: ERYTHROMYCIN BASE 250 MG TABLET PO SCH ×2 (09:21→21:20)
--- NOTE | 2016-08-18 12:50 | OB/GYN Progress Note ---
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 Remains at bedrest without fever or tenderness or leukocytosis. Exam RESIDENTIAL LIVING ASSISTANT - Constitutional Vitals: Vital Signs Temp Pulse Resp BP BP Pulse Ox 08/18/16 12:00 99.1 F 86 18 113/68 96 08/18/16 08:00 98.7 F 76 17 120/66 96 08/18/16 06:07 97.5 F L 08/18/16 06:00 18 08/18/16 04:00 99.3 F 77 18 113/70 99 08/18/16 02:00 97.8 F 18 08/18/16 00:00 98.0 F 93 H 18 127/82 99 08/17/16 21:57 98.3 F 08/17/16 20:17 94 H 18 08/17/16 20:00 98.3 F 94 H 18 121/75 99 08/17/16 16:00 98.7 F 95 H 18 123/68 96 08/17/16 14:00 98.6 F General appearance: no acute distress - Head Head exam: Present: normal inspection - ENT ENT exam: Present: normal exam - Neck Neck exam: Present: normal inspection - Respiratory Respiratory exam: Present: clear to auscultation bilaterally. Absent: accessory muscle use - Cardiovascular Cardiovascular exam: Present: regular rate and rhythm - GI/Abdominal GI/Abdominal exam: Present: soft. Absent: distended, guarding, tenderness - Extremities Exam Extremities exam: Present: normal inspection - Back Exam Back exam: Present: normal inspection, CVA tenderness (L) - Neurological Exam Neurological exam: Present: alert, oriented X3 - Psychiatric Psychiatric exam: Present: normal affect, normal mood - Skin Skin exam: Present: normal color, warm, dry Results - Labs CBC & BMP: 08/11/16 08:01 08/03/16 03:37
[2016-08-18] MEDS: ACETAMINOPHEN 325 MG TABLET PO PRN (19:35)
--- NOTE | 2016-08-18 22:57 | Event Note ---
Patient began experiencing a mucoid bloody discharge earlier this evening without obvious contractions were increasing uterine pain. This seems to settle down somewhat and the patient's physical condition is unchanged. An ultrasound performed earlier did not reveal any obvious descent. Sterile speculum exam reveals an old clot measuring approximately 5 mL in the top of the vagina. Cervix is closed and there is no active bleeding. Patient is being transferred to labor and delivery for continuous monitoring during the night.
--- NOTE | 2016-08-18 23:00 | Ultrasound Report ---
Referring physician: Azalia Valerio Exam: OB ultrasound limited Date: April 17, 2017 Comparison: OB ultrasounds August 12, 2016 Reason: Vaginal bleeding at 28 weeks Technique: Transabdominal grayscale ultrasound images were obtained. Ultrasound images were captured and stored. Findings: There is a single intrauterine in a breech presentation. heart rate is 134 bpm. There is again oligohydramnios with an ARTHUR of 1.7 cm. ARTHUR previously measured 1.5 cm. The cervix measures 2.6 cm in length compared to 2.5 cm on the previous study. The internal os appears closed. The placenta is located on the right, and there is no evidence of placenta previa. Evaluation of anatomy is limited by the oligohydramnios. The maternal ovaries are not visualized. Impression: 1. There is again oligohydramnios with an ARTHUR of 1.7 cm compared to 1.5 cm on the previous study. 2. The cervix is again shortened, measuring 2.6 cm today compared to 2.5 cm on the previous study. PROCEDURE INTERPRETED AT [facility] DEPARTMENT OF RADIOLOGY Final Report Signed by: Dr. Mari Cheng
[2016-08-19] MEDS ORDERED: ACETAMINOPHEN 325 MG TABLET ONE (01:07)
[2016-08-19] MEDS: ACETAMINOPHEN 325 MG TABLET PO PRN (01:16)
[2016-08-19] MEDS ORDERED: ACETAMINOPHEN 325 MG TABLET PO PRN (01:19)
[2016-08-19 04:43] LABS: Basophils % 0.6 % (0.0-0.8); Eosinophils # 0.2 10*3/uL (0.0-0.87); Eosinophils % 2.6 % (0.00-10.9); Hematocrit 38.1 VOL% (35.7-47.0); Hemoglobin 12.1 GM/DL (12.0-16.0); Immature Granulocytes % 0.6 %; Immature Granulocytes Absolute 0.04 #; Lymphocytes # 2.6 10*3/uL (1.4-4.0); Lymphocytes % 36.3 % (21.3-54.2); Mean Corpuscular HGB Conc 31.8 GM/DL (32-36); Mean Corpuscular Hemoglobin 28 PG (27-34); Mean Corpuscular Volume 88.6 FL (87-102); Monocytes # 1.1 10*3/uL (0.11-0.8); Monocytes % 15.5 % (1.7-12.7); Neutrophils # 3.2 10*3/uL (1.4-7.4); Neutrophils % 44.4 % (38.7-73.9); Platelet Count 246 T/CUMM (130-400); Red Cell Distribution Width 14.9 % (9.3-17.3); White Blood Count 7.2 T/CUMM (4-12)
--- NOTE | 2016-08-19 07:38 | Ultrasound Report ---
Exam: US follow up OB sonogram Date: 08/19/2016 7:00 AM Indication: Premature rupture membranes evaluate ARTHUR Comparison: 08/18/2016 Findings: The fetus is in the breech presentation with posterior placenta present. ARTHUR is 1.08 cm Cervical length 4.26 cm heart rate 1 61 bpm. The bladder is unremarkable. Impression: 1. Severe Oligohydramnios similar to previous study PROCEDURE INTERPRETED AT [facility] DEPARTMENT OF RADIOLOGY Final Report Signed by: Dr. Azam Guevara
[2016-08-19] MEDS ORDERED: DOCUSATE SODIUM 100 MG CAPSULE ONE (09:40)
[2016-08-19] MEDS: AMOXICILLIN 875 MG TABLET PO SCH ×2 (09:45→22:45)
[2016-08-19] MEDS: ERYTHROMYCIN BASE 250 MG TABLET PO SCH ×2 (09:45→22:45)
[2016-08-19] MEDS: DOCUSATE SODIUM 100 MG CAPSULE PO SCH (09:45)
--- NOTE | 2016-08-19 16:16 | OB/GYN Progress Note ---
Assessment and Plan (1) premature rupture of membranes (PPROM) with unknown onset of labor Problem details: Continue present observation. Repeating CBC and obstetrical ultrasound in the morning. Care back primary physician in the morning. Status : Acute Assessment and plan: Continue current management. Patient neonatology consultation. Repeat ARTHUR was found be 2.9 which was increased from couple days prior. Her white count was found to be decreasing and 15 down from 22. However because the patient is at viable gestational age(and due to the risk of umbilical cord prolapse and chorioamnionitis she will remain in-house until time for delivery. Will transfer from labor and delivery to the OB floor. Current Visit: Yes FRONT CLERK - PN: Subj Interval history: no complaints Exam FRONT CLERK - Constitutional Vitals: Vital Signs Temp Pulse Resp BP Pulse Ox 08/19/16 06:00 18 08/19/16 04:00 97.4 F L 18 08/19/16 02:14 99.5 F 08/19/16 02:00 18 08/19/16 00:00 97.5 F L 08/18/16 22:10 99.3 F 08/18/16 20:33 87 18 08/18/16 19:35 98.4 F 87 18 123/73 99 08/18/16 18:00 98.4 F General appearance: no acute distress - Head Head exam: Present: normocephalic - Respiratory Respiratory exam: Present: clear to auscultation bilaterally - Cardiovascular Cardiovascular exam: Present: regular rate and rhythm - GI/Abdominal GI/Abdominal exam: Present: soft - Extremities Exam Extremities exam: Present: normal inspection Results - Labs CBC & BMP: 08/19/16 04:36 08/03/16 03:37
[2016-08-20] MEDS: AMOXICILLIN 875 MG TABLET PO SCH (09:28)
[2016-08-20] MEDS: ERYTHROMYCIN BASE 250 MG TABLET PO SCH (09:28)
[2016-08-20] MEDS: MULTIVITAMIN (PRENATAL) TABLET PO SCH (09:30)
--- NOTE | 2016-08-20 13:21 | OB/GYN Progress Note ---
Assessment and Plan (1) premature rupture of membranes (PPROM) with unknown onset of labor Problem details: Continue present observation. Repeating CBC and obstetrical ultrasound in the morning. Care back primary physician in the morning. Status : Acute Assessment and plan: Continue current management. Patient neonatology consultation. Repeat ARTHUR was found be 2.9 which was increased from couple days prior. Her white count was found to be decreasing and 15 down from 22. However because the patient is at viable gestational age(and due to the risk of umbilical cord prolapse and chorioamnionitis she will remain in-house until time for delivery. Will transfer from labor and delivery to the OB floor. Current Visit: Yes BOATS RENTER - PN: Subj Interval history: No complaints Exam BOATS RENTER - Constitutional Vitals: Vital Signs Temp Pulse Resp BP 08/20/16 06:00 97.8 F 18 08/20/16 04:00 97.8 F 83 18 126/72 08/20/16 02:00 98.3 F 18 08/20/16 00:00 18 08/19/16 22:00 98.2 F 18 08/19/16 20:00 99.1 F 88 20 120/65 General appearance: no acute distress - GI/Abdominal GI/Abdominal exam: Present: normal bowel sounds, soft - Extremities Exam Extremities exam: Present: normal inspection Results - Labs CBC & BMP: 08/19/16 04:36 08/03/16 03:37
[2016-08-21] MEDS: DOCUSATE SODIUM 100 MG CAPSULE PO SCH ×3 (08:45→21:49)
[2016-08-21] MEDS: MULTIVITAMIN (PRENATAL) TABLET PO SCH (08:45)
--- NOTE | 2016-08-21 15:10 | OB/GYN Progress Note ---
Assessment and Plan (1) premature rupture of membranes (PPROM) with unknown onset of labor Problem details: Continue present observation. Repeating CBC and obstetrical ultrasound in the morning. Care back primary physician in the morning. Status : Acute Assessment and plan: Continue current management. Patient neonatology consultation. Repeat ARTHUR was found be 2.9 which was increased from couple days prior. Her white count was found to be decreasing and 15 down from 22. However because the patient is at viable gestational age(and due to the risk of umbilical cord prolapse and chorioamnionitis she will remain in-house until time for delivery. Will transfer from labor and delivery to the OB floor. Current Visit: Yes KNOCKOUT WORKER - PN: Subj Interval history: no complaint Exam KNOCKOUT WORKER - Constitutional Vitals: Vital Signs Temp Pulse Resp BP BP 08/21/16 06:00 18 08/21/16 04:00 97.3 F L 77 18 108/59 08/21/16 02:00 98.8 F 18 08/21/16 00:00 97.9 F 78 18 129/68 08/20/16 22:00 99.3 F 18 08/20/16 20:00 98.8 F 99 H 20 130/74 General appearance: no acute distress - Respiratory Respiratory exam: Present: clear to auscultation bilaterally - Cardiovascular Cardiovascular exam: Present: regular rate and rhythm - GI/Abdominal GI/Abdominal exam: Present: normal bowel sounds, soft (non tender) - Extremities Exam Extremities exam: Present: normal inspection Results - Labs CBC & BMP: 08/19/16 04:36 08/03/16 03:37
[2016-08-21] MEDS ORDERED: CALCIUM CARBONATE CHEW 500 MG TABLET PO ONE (23:00)
[2016-08-22] MEDS: DOCUSATE SODIUM 100 MG CAPSULE PO SCH ×2 (10:57→21:00)
[2016-08-22] MEDS: MULTIVITAMIN (PRENATAL) TABLET PO SCH (10:57)
--- NOTE | 2016-08-22 14:00 | OB/GYN Progress Note ---
Assessment and Plan (1) premature rupture of membranes (PPROM) with unknown onset of labor Problem details: Continue present observation. Repeating CBC and obstetrical ultrasound in the morning. Care back primary physician in the morning. Status : Acute Assessment and plan: Continue current management. Patient neonatology consultation. Repeat ARTHUR was found be 2.9 which was increased from couple days prior. Her white count was found to be decreasing and 15 down from 22. However because the patient is at viable gestational age(and due to the risk of umbilical cord prolapse and chorioamnionitis she will remain in-house until time for delivery. Will transfer from labor and delivery to the OB floor. 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 She reports good movement. Exam MACHINE FILLER SHREDDER - Constitutional Vitals: Vital Signs Temp Pulse Pulse Resp BP Pulse Ox 08/22/16 12:00 98.8 F 81 18 114/65 96 08/22/16 10:00 98.5 F 08/22/16 08:00 98.3 F 75 20 137/81 08/22/16 06:11 99.2 F 08/22/16 06:00 16 08/22/16 04:23 98.0 F 74 18 121/61 08/22/16 02:37 98.0 F 08/22/16 00:20 98.3 F 74 16 131/72 96 08/21/16 21:32 97.3 F L 08/21/16 19:12 98.8 F 108 H 16 125/70 08/21/16 17:57 98.8 F 08/21/16 16:00 98.5 F 74 18 134/88 08/21/16 14:00 98.2 F General appearance: no acute distress - Head Head exam: Present: normocephalic - Respiratory Respiratory exam: Present: clear to auscultation bilaterally - Cardiovascular Cardiovascular exam: Present: regular rate and rhythm - GI/Abdominal GI/Abdominal exam: Present: normal bowel sounds, soft (nontender no fundal tenderness) - Extremities Exam Extremities exam: Present: normal inspection Results - Labs CBC & BMP: 08/19/16 04:36 08/03/16 03:37
[2016-08-22] MEDS: ONDANSETRON 4 MG/2 ML VIAL IV PRN (23:19)
[2016-08-22] MEDS ORDERED: LACTATED RINGERS 1,000 ML IV SCH (23:45)
[2016-08-23] MEDS ORDERED: TERBUTALINE 1 MG/1 ML VIAL SUBCUT ONE (01:22)
[2016-08-23] MEDS ORDERED: PROMETHAZINE 25 MG/1 ML VIAL IM ONE (01:22)
[2016-08-23] MEDS ORDERED: MEPERIDINE 50 MG/1 ML VIAL IV ONE (01:22)
[2016-08-23 03:49] LABS: Basophils % 0.2 % (0.0-0.8); Eosinophils % 0.1 % (0.00-10.9); Hematocrit 37.1 VOL% (35.7-47.0); Hemoglobin 12.3 GM/DL (12.0-16.0); Immature Granulocytes % 0.7 %; Immature Granulocytes Absolute 0.09 #; Lymphocytes # 1.8 10*3/uL (1.4-4.0); Lymphocytes % 13.5 % (21.3-54.2); Mean Corpuscular HGB Conc 33.2 GM/DL (32-36); Mean Corpuscular Hemoglobin 29 PG (27-34); Mean Corpuscular Volume 86.5 FL (87-102); Mean Platelet Volume 10.1 FL (9.6-12.0); Monocytes # 1.3 10*3/uL (0.11-0.8); Monocytes % 9.2 % (1.7-12.7); Neutrophils # 10.4 10*3/uL (1.4-7.4); Neutrophils % 76.3 % (38.7-73.9); Platelet Count 213 T/CUMM (130-400); Red Blood Count 4.29 MC/CUMM (3.8-5.5); Red Cell Distribution Width 14.6 % (9.3-17.3); White Blood Count 13.6 T/CUMM (4-12)
[2016-08-23] MEDS ORDERED: CITRIC ACID/SODIUM CITRATE 30 ML UDCUP PO ONE (04:14)
[2016-08-23] MEDS ORDERED: FAMOTIDINE 20 MG/2 ML VIAL IV ONE (04:14)
[2016-08-23] MEDS ORDERED: OXYTOCIN/LR 20 UNIT/1,000 ML BAG IV ONE ×2 (04:24→05:13)
[2016-08-23] MEDS ORDERED: METHYLERGONOVINE 0.2 MG/1 ML AMP ONE (04:25)
--- NOTE | 2016-08-23 04:28 | Event Note ---
The patient has continued to undergo conservative observation during the last week and there has been no evidence of or maternal distress until early this morning. She began having painful contractions and a painful uterus to palpation. She has a moderate leukocytosis at her 4 a.m. CBC and a low-grade temperature (slightly over 99) during the night. Her uterus and abdominal wall fairly soft but very tender. Ultrasound has confirmed a decrease in her cervical length 4 cm last weekend to slightly over 1 cm this weekend. Physical examination by the nursing staff as confirmed by to 3 cm effacement with -1 station. It is also revealed complete oligohydramnios and a dolores breech presentation. Electronic monitoring is still revealing a surprisingly low number of variable decelerations and the fetus appears to be in pretty good shape. I think maximum effect has been obtained by conservative management and the patient is probably developing a chorioamnionitis and spontaneous labor. Preparations are being made for emergency delivery to protect an extremely premature and fragile fetus.
[2016-08-23] MEDS ORDERED: LACTATED RINGERS 1,000 ML IV SCH (04:30)
[2016-08-23 05:08] LABS: Apearance,Urine Slightly Hazy (Clear); Bilirubin,Urine Negative (Negative); Blood, Urine Small mg/dL (Negative); Glucose,Urine (UA) Negative (Negative); Hyaline Casts,Urine 1 /LPF (0-3); Ketones,Urine 20 mg/dL (Negative); Mucus,Urine Many /LPF (Occasional); Nitrite,Urine Negative (Negative); Protein,Urine 30 MG/DL; RBC,Urine 14 /HPF (0-4); Squamous Epithelial Cell,Urine Occasional /HPF (0-10); Urine Color Yellow (Yellow); Urine Specific Gravity 1.036 (1.001-1.035); Urine Urobilinogen < 2.0 EU/DL (0.2-1.0); WBC,Urine 2 /HPF (0-6)
--- NOTE | 2016-08-23 05:08 | Operative Note ---
Date of procedure: 08/23/16 Pre-op diagnosis: at 29 weeks gestation with PROM, active labor Post-op diagnosis: other (same with dolores breech presentation and precipitous delivery) Procedure: Correspondence Clerk Dolores breech delivery Shortly after the previous adhesion noted was completed the patient complained of extreme vaginal and perineal pressure. Examination revealed a Dolores breech presentation at +2 station with complete dilatation and effacement of the cervix. The patient was prepped and draped in the bed in the dorsal lithotomy position and the buttocks allowed to deliver spontaneously through the introitus. The legs were flexed at the knees and delivered. The infant was grasp at the iliac crest using a towel for traction pressure applied posteriorly until the anterior shoulder was delivered. The right arm was then flexed across the chest and the body rotated for the left arm. His left arm was delivered the head delivered with a and the vaginal delivery was completed. The cord was clamped long for the perinatologist and the infant transferred to the warmer in satisfactory condition with good Apgars. Segment of cord was removed for cord blood studies and routine cord blood is afterwards. The placenta delivered spontaneously and was delivered Rodriguez-Amado maneuver. No lacerations were noted and no repair required. Anesthesia: none Surgeon / Physician: Azam Barr Estimated blood loss: minimal Specimens: other (placenta and cord blood) Condition: stable Disposition: floor Results - Labs CBC & BMP: 08/23/16 03:43 08/03/16 03:37 Discharge Plan - Discharge Medications No Action Pnv No.122/Iron/Folic Acid [ Multi Tablet] 1 tablet PO DAILY - Follow Up or Referral - Forms/Instructions
--- NOTE | 2016-08-23 07:22 | Ultrasound Report ---
Exam: US follow up OB sonogram Date: 08/23/2016 2:32 AM Comparison: 08/19/2016 Indication: ARTHUR, presentation, cervical length dillan Technique:[Multiple transabdominal real-time scans were obtained. Ultrasound images were captured and stored. This exam was initially interpreted by [facility].] Findings: There is a single intrauterine fetus in a breech presentation with heart rate 154 BPM. The posterior placenta is not low-lying in position with cervical length of 14 mm. Maternal ovaries are not identified. No detailed survey scans were obtained. No scans were obtained for dating purposes. ARTHUR is 0. Impression: Limited scans were obtained. Single intrauterine fetus in the breech presentation. Oligohydramnios with ARTHUR of 0. Shortened cervical length of 14 mm. PROCEDURE INTERPRETED AT [facility] DEPARTMENT OF RADIOLOGY Final Report Signed by: Dr. Hilda Castillo
[2016-08-23] MEDS ORDERED: IBUPROFEN 800 MG TABLET ONE (12:36)
[2016-08-23] MEDS: IBUPROFEN 800 MG TABLET PO PRN (12:39)
[2016-08-23] MEDS: DOCUSATE SODIUM 100 MG CAPSULE PO SCH (22:05)
[2016-08-24] MEDS: DOCUSATE SODIUM 100 MG CAPSULE PO SCH ×2 (08:14→21:08)
[2016-08-24 09:00] LABS: Basophils # 0.1 10*3/uL (0.0-0.2); Basophils % 0.4 % (0.0-0.8); Eosinophils # 0.3 10*3/uL (0.0-0.87); Hematocrit 35.8 VOL% (35.7-47.0); Hemoglobin 11.7 GM/DL (12.0-16.0); Immature Granulocytes % 0.5 %; Immature Granulocytes Absolute 0.07 #; Lymphocytes # 3.4 10*3/uL (1.4-4.0); Lymphocytes % 24.2 % (21.3-54.2); Mean Corpuscular HGB Conc 32.7 GM/DL (32-36); Mean Corpuscular Hemoglobin 29 PG (27-34); Mean Corpuscular Volume 87.3 FL (87-102); Mean Platelet Volume 9.9 FL (9.6-12.0); Monocytes # 0.9 10*3/uL (0.11-0.8); Monocytes % 6.6 % (1.7-12.7); Neutrophils # 9.2 10*3/uL (1.4-7.4); Neutrophils % 66.3 % (38.7-73.9); Platelet Count 198 T/CUMM (130-400); Red Cell Distribution Width 14.6 % (9.3-17.3); White Blood Count 13.9 T/CUMM (4-12)
--- NOTE | 2016-08-24 11:27 | Progress Note ---
Assessment and Plan (1) premature rupture of membranes (PPROM) with unknown onset of labor Status: Acute Current Visit: Yes Family Medicine PN Sub Interval history: No complaints no problems. Exam (Progress Note) - Constitutional Vitals: Period Temp Pulse Resp BP Sys/Berumen Pulse Ox Last 24 Hr 98.1 F-99 F 71-85 18-18 129-159/73-90 96-99 General appearance: no acute distress - Head Head exam: Present: normal inspection - Neck Neck exam: Present: normal inspection - Respiratory Respiratory exam: Present: clear to auscultation bilaterally. Absent: accessory muscle use - Cardiovascular Cardiovascular exam: Present: regular rate and rhythm - GI/Abdominal GI/Abdominal exam: Present: soft - Additional comments: Fundus is tonic 3 fingers above the umbilicus. There is no perineal lacerations or stitches. - Back Exam Back exam: Present: normal inspection - Neurological Exam Neurological exam: Present: alert - Psychiatric Psychiatric exam: Present: normal affect, normal mood - Skin Skin exam: Present: normal color Results - Labs CBC & BMP: 08/24/16 08:48 08/03/16 03:37 Specialty Discharge - Follow Up or Referrals Follow up with: Azalia Valerio MD [Physician] - (Call the office Friday and make a 6 week follow up appointment)
[2016-08-24] MEDS ORDERED: MAGNESIUM HYDROXIDE SUSP 30 ML UDCUP PO PRN (12:22)
[2016-08-24] MEDS: SIMETHICONE CHEW 80 MG TABLET PO PRN (12:30)
[2016-08-24] MEDS ORDERED: MEPERIDINE 25 MG/1 ML VIAL IV ONE (12:31)
[2016-08-24] MEDS: ONDANSETRON 4 MG/2 ML VIAL IM PRN ×2 (12:45→13:44)
[2016-08-24] MEDS ORDERED: MEPERIDINE 25 MG/1 ML VIAL IM ONE (13:15)
[2016-08-24] MEDS: MULTIVITAMIN (PRENATAL) TABLET PO SCH (19:05)
[2016-08-25] MEDS: DOCUSATE SODIUM 100 MG CAPSULE PO SCH (08:42)
[2016-08-25] MEDS: IBUPROFEN 800 MG TABLET PO PRN (08:43)
[2016-08-25] MEDS: MULTIVITAMIN (PRENATAL) TABLET PO SCH (08:43)
[2016-08-25] MEDS: SIMETHICONE CHEW 80 MG TABLET PO PRN (08:43)
[2016-08-25] MEDS ORDERED: INFLUENZA VIRUS VACCINE 0.5 ML SYRINGE IM ONE (08:45)
[2016-08-25 12:00] VITALS: BP 133/81
--- NOTE | 2016-08-25 13:16 | Progress Note ---
Assessment and Plan (1) premature rupture of membranes (PPROM) with unknown onset of labor Status: Acute Current Visit: Yes (2) examination following vaginal delivery Status: Acute Assessment and plan: Status post factory progress, ready for discharge. Will be remaining at the hospital to provide breast milk for the next several days or so. Current Visit: Yes Family Medicine PN Sub Interval history: The patient is doing well without complaints. Exam relating voiding tolerating regular diet and doing well on oral pain medicine. Her baby is doing well but still being fed pumped breast milk. Exam (Progress Note) - Constitutional Vitals: Period Temp Pulse Resp BP Sys/Berumen Pulse Ox Last 24 Hr 97.8 F-99.5 F 68-80 18-20 133-150/74-96 9-99 General appearance: no acute distress - Head Head exam: Present: normal inspection - Neck Neck exam: Present: normal inspection - Respiratory Respiratory exam: Absent: accessory muscle use - Cardiovascular Cardiovascular exam: Present: regular rate and rhythm - GI/Abdominal GI/Abdominal exam: Present: soft. Absent: tenderness - Extremities Exam Extremities exam: Present: normal inspection - Back Exam Back exam: Present: normal inspection - Neurological Exam Neurological exam: Present: alert, oriented X3 - Psychiatric Psychiatric exam: Present: normal affect, normal mood - Skin Skin exam: Present: normal color, warm, dry Results - Labs CBC & BMP: 08/24/16 08:48 08/03/16 03:37 Specialty Discharge - Follow Up or Referrals Follow up with: Azalia Valerio MD [Physician] - (Call the office Friday and make a 6 week follow up appointment)
[2016-08-25] MEDS ORDERED: DIPH/TET/ACEL PERT BOOSTER VACCINE 0.5 ML VIAL IM ONE (13:29)
--- NOTE | 2016-08-26 11:18 | Pathology Report from [facility] ---
ACCESSION # : [id number] PATIENT NAME : Isabel Griffin ORDERING DR : MIKEY SEE MD CLINICAL HX: IUP @ 29 weeks - PROM x 21 days - Active labor POST-OP DX: Same SPECIMEN INFO: Placenta GROSS DESCRIPTION: Received fresh labeled "ISABEL GRIFFIN & PLACENTA" is a 232 gm placenta measuring 14 x 12.6 x 2 cm. There is an accessory lobe present measuring 4.8 x 7 cm. The membranes are pink atkinson and translucent with some vascular areas noted. The umbilical cord is eccentrically inserted, contains three vessels and measures 14.1 cm. The surface is dark blue marrufo. The maternal surface is hemorrhagic with numerous calcifications and some fibrotic areas present. No gross abnormalities upon sections. Sections submitted A- membranes and cord, B- and maternal surfaces. DIAGNOSIS FOR ISABEL GRIFFIN: PLACENTA, MEMBRANES, UMBILICAL CORD: Focal placental infarction with dystrophic calcification, mild intervillous blood. Tri -vessel umbilical cord, eccentrically inserted. Membranes with acute chorioamnionitis. SERVICE DATE: 08/23/2016 REPORT DATE: 08/26/2016 PATHOLOGIST: Segun Reyes
== END 2016-08-25 19:00 | disposition home or self-care (01) | DRG 560 ==
LOC: N.LDOUT 02:42 → N.LD 02:43 → N.OB 08-12 15:48 → N.LD 08-18 22:56 → N.OB 08-23 08:49
PROVIDERS: ADMIT Obstetrics & Gynecology; ATTEND Obstetrics & Gynecology